=== PATIENT | male | born 1965 | race Caucasian/White ===

== ENCOUNTER 2023-09-17 10:09 | Emergency (ER) | payer MEDICARE, MEDICAID ==
[~2023-09-17] VITALS: Ht 177.8 cm; Wt 92.3 kg
[2023-09-17] MEDS ORDERED: MELO15TA28 PO (10:27)
[2023-09-17] MEDS ORDERED: ROSU20TA61 PO (10:27)
[2023-09-17] MEDS ORDERED: METF500T13 PO (10:27)
[2023-09-17] MEDS ORDERED: AMLO1TAB25 PO (10:27)
[2023-09-17] MEDS ORDERED: GNP250TA9 PO (10:27)
[2023-09-17] MEDS ORDERED: FAMO20TA PO (10:27)
[2023-09-17] MEDS ORDERED: ESOM1CAP5 PO (10:27)
[2023-09-17] MEDS ORDERED: METO1TAB87 PO (10:27)
[2023-09-17] MEDS ORDERED: VENL150C43 PO (10:27)
[2023-09-17 12:40] LABS: INR 1.02; PARTIAL THROMBOPLASTIN TIME 25.8 SECONDS (24.8-34.2); PROTHROMBIN TIME 13.1 SECONDS (12.5-14.5)
[2023-09-17 12:55] LABS: LIPASE 34 U/L (12-53)
[2023-09-17 12:56] LABS: CPK CREATINE PHOSPHOKINASE 162 U/L (46-171); MB/CK RELATIVE INDEX 1.23 (< OR =4)
[2023-09-17 12:57] LABS: ALKALINE PHOSPHATASE 65 U/L (46-116); ALT/SGPT 44 U/L (7.0-40); AST/SGOT 28 U/L (<34); BILIRUBIN,DIRECT 0.3 MG/DL (<0.4); BILIRUBIN,TOTAL 0.7 MG/DL (0.3-1.2); BLOOD UREA NITROGEN 13 MG/DL (9-23); CALCIUM LEVEL 8.9 MG/DL (8.3-10.6); CARBON DIOXIDE LEVEL 27 MMOL/L (20-31); CHLORIDE LEVEL 99 MMOL/L (98-107); CREATININE FOR GFR 0.62 MG/DL (0.70-1.30); GLOMERULAR FILTRATION RATE > 60.0 (>49); GLUCOSE, FASTING 219 MG/DL (74-106); POTASSIUM SERUM 3.9 MMOL/L (3.5-5.1); SODIUM LEVEL 134 MMOL/L (136-145); TOTAL PROTEIN 7.3 G/DL (5.7-8.2)
[2023-09-17 12:58] LABS: FREE T4 1.03 NG/DL (0.89-1.76); THYROID STIMULATING HORMONE 1.762 uIU/ML (0.55-4.78)
[2023-09-17 13:01] VITALS: O2SAT 97
[2023-09-17 13:06] LABS: BASO # 0.1 10^3/uL (0.0-0.2); BASO % 1.4 % (0.0-1.0); EOS # 0.4 10^3/uL (0.0-0.5); HEMATOCRIT 45.8 % (42.0-52.0); HEMOGLOBIN 16.7 g/dl (13.5-17.5); LYMPH # 3.1 10^3/uL (1.5-5.0); LYMPH % 29.7 % (24.0-44.0); MEAN CORPUSCULAR HEMOGLOBIN 32.1 pg (27.0-33.0); MEAN CORPUSCULAR HGB CONC 36.5 g/dl (32.0-36.5); MEAN CORPUSCULAR VOLUME 88.1 fl (80.0-96.0); MONO # 0.7 10^3/uL (0.0-0.8); MONO % 6.3 % (2.0-8.0); NEUTROPHILS % 58.2 % (36.0-66.0); PLATELET COUNT, AUTOMATED 227 10^3/uL (150-450); WHITE BLOOD COUNT 10.3 10^3/uL (4.0-10.0)
[2023-09-17 13:07] VITALS: BP 155/100; TEMP 98.4
== END 2023-09-17 13:36 | disposition home or self-care (01) ==
LOC: M ED 10:09
DX: I10 Essential (primary) hypertension (principal); E11.9 Type 2 diabetes mellitus without complications; M54.50 Low back pain, unspecified; I45.81 Long QT syndrome; Z88.5 Allergy status to narcotic agent; Z79.4 Long term (current) use of insulin; Z79.84 Long term (current) use of oral hypoglycemic drugs; Z79.899 Other long term (current) drug therapy